=== PATIENT | female | born 2005 | race African-American/Black ===

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

== ENCOUNTER 2024-02-12 00:35 | Emergency (ER) | payer OTHER ==
[2024-02-12 00:47] VITALS: BP 117/81; PULSE 89; RESP 17; TEMP 98.6
[2024-02-12] MEDS ORDERED: DEXAMETHASONE SOD PHOSPHATE 10 MG/1 ML VIAL ONE (00:48)
[2024-02-12] MEDS ORDERED: diphenhydrAMINE HCL 25 MG CAPSULE (FP) PO ONE (00:48)
[2024-02-12] MEDS: DEXAMETHASONE SOD PHOSPHATE 4 MG/1 ML VIAL IM ONE (00:56)
[2024-02-12] MEDS: diphenhydrAMINE HCL 25 MG CAPSULE (FP) PO ONE (00:56)
== END 2024-02-12 01:19 | disposition home or self-care (01) ==
LOC: FER 00:35
PROC: 3E023GC Introduction of Other Therapeutic Substance into Muscle, Percutaneous Approach (ICD-10-PCS; principal; 2024-02-12)
DX: S70.361A Insect bite (nonvenomous), right thigh, initial encounter (principal); R21 Rash and other nonspecific skin eruption; M79.10 Myalgia, unspecified site; L29.9 Pruritus, unspecified; W57.XXXA Bitten or stung by nonvenomous insect and other nonvenomous arthropods, initial encounter
CPT/HCPCS: 99284-25